=== PATIENT | male | born 1965 | race Caucasian/White ===

== ENCOUNTER → 2016-09-04 | Outpatient (CLI) | payer OTHER | END | disposition home or self-care (01) | LOC: GMAJ 17:37 | PROVIDERS: ATTEND Family Medicine | DX: M25.50 Pain in unspecified joint (principal) ==

== ENCOUNTER → 2018-09-14 | Outpatient (CLI) | payer BC ==
--- NOTE | 2018-09-15 16:57 | MRI ---
EXAM DESCRIPTION: Lumbar Spine w/o Contrast CLINICAL HISTORY: RADICULOPATHY lower back and left leg pain and numbness COMPARISON: None Available. TECHNIQUE: Multi plantar multi sequence non contrast imaging. FINDINGS: There is good alignment of the lumbar spine. There is no vertebral pathology. No extra spinous abnormality is detected. L1-2: The disc is desiccated without loss of disc height is observed. A central annular bulge is evident. L2-3: The disc is desiccated. A central annular bulge is evident. No neural foraminal disease is observed. L3-4: The disc is desiccated. A central 2.6 mm disc bulge is evident. No neural foraminal disease of significance is observed. L4-5: The disc is desiccated. A left-sided disc extrusion is observed with some inferior migration. It extends back 3.9 mm. No neural foraminal disease is observed. L5-S1: The disc is desiccated. A central 3.5 mm disc bulge is evident. No neural foraminal disease is of significance is detected. IMPRESSION: 1. A left-sided disc extrusion with inferior migration is observed at the L4-5 level. 2. A central 3.5 mm disc bulge is evident at the L5-S1 level. 3. A 2.6 mm central disc bulge is observed at the L3-4 level. Electronically signed by: Abiel Melendrez MD 09/15/2018 4:56 PM CDT
== END ==
LOC: MRI 12:41
PROVIDERS: ATTEND Family Medicine
DX: M51.26 Other intervertebral disc displacement, lumbar region (principal)